=== PATIENT | male | born 1940 | race Native Hawaiian/Other Pacific Islander ===

== ENCOUNTER 2022-12-23 20:39 | Emergency (ER) | payer OTHER ==
[~2022-12-23] VITALS: Ht 154.9 cm; Wt 115.2 kg
[2022-12-23 20:39] VITALS: BP 150/65; TEMP 98
[2022-12-23 21:09] LABS: PLATELET COUNT 297 K/uL (142-355)
[2022-12-23 21:14] LABS: POTASSIUM 3.3 mmol/L (3.6-5.2)
[2022-12-24] MEDS ORDERED: TYLENOL325 MG PO (15:50)
[2022-12-24] MEDS ORDERED: CHLORTHALID25 MG PO (15:51)
[2022-12-24] MEDS ORDERED: AMLODIPINE BESYLATE PO (15:51)
[2022-12-24] MEDS ORDERED: VITAMIN D325 MCG PO (15:52)
[2022-12-24] MEDS ORDERED: DONEPEZIL HYDRO10 M1 PO (15:52)
[2022-12-24] MEDS ORDERED: GABA300C2 PO (15:53)
[2022-12-24] MEDS ORDERED: NAPROXEN EC500 MG PO (15:53)
[2022-12-24] MEDS ORDERED: PANTOPRAZOLE 40MG TA PO (15:54)
[2022-12-24] MEDS ORDERED: TAMS0.4C PO (15:54)
[2022-12-24] MEDS ORDERED: TRELEGY ELLIPTA1 AE1 INH (15:54)
[2022-12-28] MEDS ORDERED: NORVASC 5MG TAB PO (11:25)
[2022-12-28] MEDS ORDERED: DONE5TAB PO (11:26)
[2022-12-28] MEDS ORDERED: GABA300C2 PO (11:26)
[2022-12-28] MEDS ORDERED: CEFD300C2 PO (11:26)
[2022-12-28] MEDS ORDERED: CHOL100034 PO (11:26)
[2022-12-28] MEDS ORDERED: INSUINJ20 SC (11:27)
[2022-12-28] MEDS ORDERED: NAPROSYN PO (11:27)
[2022-12-28] MEDS ORDERED: LOSA50TA PO (11:27)
[2022-12-28] MEDS ORDERED: HYDR25TA60 PO (11:27)
[2022-12-28] MEDS ORDERED: BLOOMIS59 PO (11:28)
[2022-12-28] MEDS ORDERED: TAMS0.4C PO (11:28)
[2022-12-28] MEDS ORDERED: PANTOPRAZOLE 40MG TA PO (11:28)
== END 2022-12-23 22:10 | disposition still patient (30) ==
LOC: ED 20:39
PROVIDERS: Internal Medicine
DX: R45.1 Restlessness and agitation (principal); F03.90 Unspecified dementia, unspecified severity, without behavioral disturbance, psychotic disturbance, mood disturbance, and anxiety
CPT/HCPCS: 36415; 80053; 81000; 85027; 87077; 87086; 87088; 87186; 87635; 93005; 99283; U0003

== ENCOUNTER 2023-03-02 16:43 | Emergency (ER) | payer OTHER ==
[~2023-03-02] VITALS: Ht 154.9 cm; Wt 111.6 kg
[2023-03-02 16:43] VITALS: BP 127/67; TEMP 98.5
[~2023-03-02 16:43] MED LIST: AMLODIPINE BESYLATE PO; BLOOMIS59 PO; CEFD300C2 PO; CHLORTHALID25 MG PO; CHOL100034 PO; DONE5TAB PO; DONEPEZIL HYDRO10 M1 PO; GABA300C2 PO; HYDR25TA60 PO; INSUINJ20 SC; LOSA50TA PO; NAPROSYN PO; NAPROXEN EC500 MG PO; NORVASC 5MG TAB PO; PANTOPRAZOLE 40MG TA PO; TAMS0.4C PO; TRELEGY ELLIPTA1 AE1 INH; TYLENOL325 MG PO; VITAMIN D325 MCG PO
[2023-03-02 17:03] LABS: PLATELET COUNT 314 K/uL (142-355)
[2023-03-02 17:12] LABS: POTASSIUM 3.3 mmol/L (3.6-5.2)
[2023-03-03] MEDS ORDERED: DECUBI-VITE PO (06:17)
[2023-03-03] MEDS ORDERED: HYDR25TA60 PO (06:19)
[2023-03-03] MEDS ORDERED: DIOVAN40 MG PO (06:21)
[2023-03-06] MEDS ORDERED: NORVASC 5MG TAB PO (11:29)
[2023-03-06] MEDS ORDERED: ACET-206 PO (11:29)
[2023-03-06] MEDS ORDERED: DULCOLAX 5MG TAB PO (11:29)
[2023-03-06] MEDS ORDERED: GABA300C2 PO (11:30)
[2023-03-06] MEDS ORDERED: NAPROSYN PO (11:30)
[2023-03-06] MEDS ORDERED: Depakote Sprinkles 1 PO (11:30)
[2023-03-06] MEDS ORDERED: CHOL100034 PO (11:30)
[2023-03-06] MEDS ORDERED: HYDR25TA60 PO (11:30)
[2023-03-06] MEDS ORDERED: DIOVAN 80 MG PO (11:31)
[2023-03-06] MEDS ORDERED: PANTOPRAZOLE 40MG TA PO (11:31)
[2023-03-06] MEDS ORDERED: TAMS0.4C PO (11:31)
== END 2023-03-02 17:52 | disposition still patient (30) ==
LOC: ED 16:43
PROVIDERS: Family Medicine
DX: Z02.79 Encounter for issue of other medical certificate (principal); R45.6 Violent behavior; J44.9 Chronic obstructive pulmonary disease, unspecified; F03.90 Unspecified dementia, unspecified severity, without behavioral disturbance, psychotic disturbance, mood disturbance, and anxiety; E11.9 Type 2 diabetes mellitus without complications; E78.00 Pure hypercholesterolemia, unspecified; I10 Essential (primary) hypertension
CPT/HCPCS: 80053; 81000; 85027; 87077; 87086; 87088; 87185; 87635; 93005; 99283; U0003